=== PATIENT | female | born 1950 | race Caucasian/White ===

== ENCOUNTER → 2016-11-18 | Outpatient (CLI) | payer BC ==
[~2016-11-18] MED LIST: ASPIRIN EC81 M1 PO; CIPRO PO; FLAGYL PO; HYDROCODONE-A1 UDTA3 PO; PYRIDIUM PO; VITAMIN D1000 UNIT PO; ZANTAC150 MG PO
--- NOTE | ~2016-11-18 | MY11 ---
[facility] A Service of [facility] RADIOLOGY TEXT RESULTS PATIENT: GUERA PRITCHETT LOCATION: [facility] : 50 UNIT #: [id number] AGE: [address]: Chris Navarro MD SEX: F ORDER DR: [id number] [facility] [address] [place], [place] [address] [id number] O MR#: [id number] Acc #: [id number] NAME: GUERA PRITCHETT : 1950 SEX: F STUDY DATE/TIME: 11/18/2016 9:40 UNIT: [facility] ROOM: STUDY DESCRIPTION: MY Mammogram Screening Dig Marcus Attending Physician: Chris Navarro M.D. Referring Physician: Chris Navarro M.D. Ordering Physician: Chris Navarro M.D. Primary Care Physician: Chris Navarro M.D. MEDICAL IMAGING REPORT This report is preliminary unless electronic signature is present EXAM Screening mammogram 11/18 INDICATIONS 66-year-old with no personal or family history of breast cancer. No current complaints. TECHNIQUE Routine digital screening views of both breasts were obtained. Study was reviewed with an FDA-approved CAD device. COMPARISON 02/18/2013, 10/07/2011 FINDINGS Breast parenchyma shows scattered fibroglandular densities. No masses or suspicious microcalcifications are seen. IMPRESSION Negative mammogram. Routine screen in 1 year recommended. Patient's over the age of 40 are entered into a reminder system with target due date for the next mammogram. A result letter will be sent to the patient. BIRADS: 1 Negative Dictated by... Nelson Menard Jr., M.D. THIS IS AN ELECTRONICALLY VERIFIED REPORT Nelson Menard Jr., M.D. at 11/18/2016 5:00 PM [facility] A Service of [facility] RADIOLOGY TEXT RESULTS PATIENT: GUERA PRITCHETT LOCATION: [facility] : 50 UNIT #: [id number] AGE: [address]: Chris Navarro MD SEX: F ORDER DR: MOISE/pb TD: 11/18/2016 12:31 JOB #: [id number] MEDICAL IMAGING REPORT COPY
--- NOTE | ~2016-11-18 | BD1 ---
[facility] A Service of [facility] & [facility] RADIOLOGY TEXT RESULTS PATIENT: GUERA PRITCHETT LOCATION: [facility] : 50 UNIT #: [id number] AGE: [address]: Chris Navarro MD SEX: F ORDER DR: [id number] [facility] [address] [place], [place] [address] [id number] O MR#: [id number] Acc #: [id number] NAME: GUERA PRITCHETT : 1950 SEX: F STUDY DATE/TIME: 11/18/2016 9:33 UNIT: [facility] ROOM: STUDY DESCRIPTION: BD Dexa Bone Dens 1+ Site Attending Physician: Chris Navarro M.D. Referring Physician: Crhis Navarro M.D. Ordering Physician: Chris Navarro M.D. Primary Care Physician: Chris Navarro M.D. MEDICAL IMAGING REPORT This report is preliminary unless electronic signature is present EXAM Bone density spine hip 11/18/2016 HISTORY Post menopause. Smoker. Not currently. Family history osteoporosis in mother. Bone mineral density performed upper 4 lumbar vertebral segments and proximal left femur in 179-pound female. COMPARISON STUDIES Comparison 04/13/2014 FINDINGS L1-L4 total bone mineral density 0.908 g per square centimeter for a T-score 1.3 standard deviations below mean for a reference population normal young individuals and a Z-score 0.6 standard deviation above mean for age-match population. Compared to March 2014 there has been a 0.7% decrease in bone mineral density. PROXIMAL LEFT FEMUR: Total bone mineral density is 0.761 g per square centimeter for a T-score 1.5 standard deviations below mean for a reference population normal young individuals and a Z-score 0.2 standard deviations below mean for age-match population. In left femoral neck specifically bone mineral density is 0.692 g per square centimeter for a T-score 1.4 standard deviations below mean for a reference population normal young individuals and a Z-score 0.2 standard deviations above mean for age-matched population. Using total bone mineral density as a trending value in this region there has been a 10.2% decrease in total proximal left femoral bone mineral density since March 2014 and this is felt to be statistically significant. IMPRESSION [facility] A Service of [facility] & [facility] RADIOLOGY TEXT RESULTS PATIENT: GUERA PRITCHETT LOCATION: [facility] : 50 UNIT #: [id number] AGE: [address]: Chris Navarro MD SEX: F ORDER DR: 1. Osteopenia in the left femoral neck. Patient is felt to be at increased risk for fracture. Treatment options may considered. Continued surveillance is recommended. 2. Statistically significant decrease in bone mineral density in the proximal left femur overall. Please see complete trending data in body of report above. 3. Incidental note made of osteopenia in the upper 4 lumbar vertebral segments overall as well. Dictated by... Rafael Collins M.D. THIS IS AN ELECTRONICALLY VERIFIED REPORT Rafael Collins M.D. at 11/20/2016 5:52 PM Jose TD: 11/18/2016 18:02 JOB #: [id number] MEDICAL IMAGING REPORT COPY
== END | disposition home or self-care (01) ==
LOC: CWCC 09:05
DX: Z13.820 Encounter for screening for osteoporosis (principal); Z12.31 Encounter for screening mammogram for malignant neoplasm of breast; Z78.0 Asymptomatic menopausal state; M85.89 Other specified disorders of bone density and structure, multiple sites
CPT/HCPCS: 77080; G0202